=== PATIENT | female | born 1970 | race Hispanic/Latino ===

== ENCOUNTER 2018-07-17 17:43 | Inpatient (IN) | payer OTHER ==
[2018-07-17] MEDS ORDERED: NACL 0.9% 1000 ML 1,000 ML IV ONE (17:58)
[2018-07-17 18:31] LABS: Basophils # (Auto) 0.1 K/mm3 (0.0-0.1); Eosinophils # (Auto) 0.2 K/mm3 (0.0-0.4); Eosinophils % (Auto) 1.7 % (0.0-4.3); Hematocrit 47.1 % (30.3-42.9); Hemoglobin 16.5 gm/dl (10.1-14.3); Lymphocytes # (Auto) 3.2 K/mm3 (1.2-5.4); Lymphocytes % (Auto) 32.9 % (13.4-35.0); Mean Corpuscular HGB Conc 35 % (30-34); Mean Corpuscular Volume 91 fl (79-97); Monocytes # (Auto) 0.6 K/mm3 (0.0-0.8); Monocytes % (Auto) 6.5 % (0.0-7.3); Platelet Count 255 K/mm3 (140-440); Red Blood Count 5.15 M/mm3 (3.65-5.03)
[2018-07-17 18:52] LABS: Alanine Aminotransferase 16 units/L (7-56); Albumin 4.6 g/dL (3.9-5); BUN/Creatinine Ratio 17; Blood Urea Nitrogen 15 mg/dL (7-17); Calcium 10.1 mg/dL (8.4-10.2); Hemolysis Index 5
[2018-07-17 18:57] LABS: Bilirubin,Urine NEG (Negative); Blood,Urine NEG (Negative); Color,Urine Yellow (Yellow); Mucus,Urine FEW /HPF; Protein,Urine <15 mg/dL mg/dL (Negative)
--- NOTE | 2018-07-17 22:32 | Emergency Department Report ---
ED Abdominal Pain HPI - General Chief Complaint: Abdominal Pain Stated Complaint: ABD PAIN/VOMITING Time Seen by Provider: 07/17/18 22:01 Source: patient Mode of arrival: Ambulatory Limitations: No Limitations - History of Present Illness Initial Comments: Patient is a 48-year-old female that presents to emergency room with complaints of abdominal pain 3 days. Patient states she's had this problem for 1 month and a half intermittently. Patient states the pain is a 5 out of 10 and has been worsening over the last 3 days. Patient states the pain is better with rest and worse with palpation and movement. Patient states the pain is in her umbilicus and radiates to her right lower quadrant and radiates to her right flank. Patient states she is having nausea and vomiting. Patient states several normal bowel movements. MD Complaint: abdominal pain -: Sudden Location: periumbilical, RLQ Radiation: R flank Migration to: no migration Severity: moderate Severity scale (0 -10): 5 Quality: stabbing Consistency: constant Improves With: rest Worsens With: movement Associated Symptoms: nausea, vomiting. denies: diarrhea, fever, chills, constipation, dysuria, hematemesis, hematochezia, melena, hematuria, anorexia, syncope Treatments Prior to Arrival: NSAIDs - Related Data LMP (females 10-50): last week Allergies Allergy/AdvReac Type Severity Reaction Status Date / Time No Known Allergies Allergy Unverified 07/17/18 17:55 ED Review of Systems ROS: Stated complaint: ABD PAIN/VOMITING Other details as noted in HPI Constitutional: denies: chills, fever Eyes: denies: eye pain, eye discharge, vision change ENT: denies: ear pain, throat pain Respiratory: denies: cough, shortness of breath, wheezing Cardiovascular: denies: chest pain, palpitations Endocrine: no symptoms reported Gastrointestinal: abdominal pain, nausea, vomiting. denies: diarrhea Genitourinary: denies: urgency, dysuria, discharge Musculoskeletal: denies: back pain, joint swelling, arthralgia Skin: denies: rash, lesions Neurological: denies: headache, weakness, paresthesias Psychiatric: denies: anxiety, depression Hematological/Lymphatic: denies: easy bleeding, easy bruising ED Past Medical Hx - Past Medical History Previous Medical History?: No - Surgical History Past Surgical History?: Yes Additional Surgical History: C/S - Family History Family history: no significant - Social History Smoking Status: Current Every Day Smoker Substance Use Type: None ED Physical Exam - General Limitations: No Limitations General appearance: alert, in no apparent distress - Head Head exam: Present: atraumatic, normocephalic - Eye Eye exam: Present: normal appearance - ENT ENT exam: Present: mucous membranes moist - Neck Neck exam: Present: normal inspection - Respiratory Respiratory exam: Present: normal lung sounds bilaterally. Absent: respiratory distress - Cardiovascular Cardiovascular Exam: Present: regular rate, normal rhythm. Absent: systolic murmur, diastolic murmur, rubs, gallop - GI/Abdominal GI/Abdominal exam: Present: soft, tenderness (periumbilical tenderness and right lower quadrant tenderness. Right flank tenderness), normal bowel sounds - Extremities Exam Extremities exam: Present: normal inspection - Back Exam Back exam: Present: normal inspection - Neurological Exam Neurological exam: Present: alert, oriented X3 - Psychiatric Psychiatric exam: Present: normal affect, normal mood - Skin Skin exam: Present: warm, dry, intact, normal color. Absent: rash ED Course Vital Signs 07/17/18 07/17/18 07/17/18 17:55 21:38 23:55 Temperature 98.5 F Pulse Rate 74 74 62 Respiratory 20 16 16 Rate Blood Pressure 140/87 Blood Pressure 134/62 126/81 [Left] O2 Sat by Pulse 98 97 97 Oximetry 07/18/18 07/18/18 07/18/18 00:55 01:55 03:27 Temperature 97.8 F Pulse Rate 61 67 61 Respiratory 18 16 16 Rate Blood Pressure Blood Pressure 106/53 121/74 121/76 [Left] O2 Sat by Pulse 98 98 97 Oximetry - Reevaluation(s) Reevaluation #1: Discussed all results with patient. patient agrees with plan of care and admission. Patient to be admitted to the hospitalist service. 07/18/18 03:15 - Consultations Consultation #1: Discussed case with Dr. fernandez. Dr. fernandez, general surgery wants patient admitted to the hospitalist service and placed on Zosyn and nothing by mouth 07/18/18 03:16 Hospitalist consult for admission. Hospitalist to admit patient. 07/18/18 03:49 ED Medical Decision Making - Lab Data Result diagrams: 07/17/18 18:06 01/11/19 18:06 - Radiology Data Radiology results: report reviewed FINAL REPORT PROCEDURE: CT ABDOMEN PELVIS W CON TECHNIQUE: Computerized axial tomography of the abdomen and pelvis was performed after the IV injection of iodinated nonionic contrast. HISTORY: rt flank pain. back pain,. rlq pain COMPARISON: No prior studies are available for comparison. FINDINGS: Visualized lower thorax: No significant abnormality. Liver: Normal size and attenuation. Spleen: Normal size and attenuation. Gallbladder and biliary system: Normal. Pancreas: Normal. Adrenals: Normal. Kidneys: Normal. GI tract: The appendix is identified and measures 7 millimeters in diameter. This is at the upper limits of normal. There are questionable inflammatory changes of the surrounding fat. Early appendicitis is suspected. Correlation with clinical data suggested. The stomach, small bowel and colon are unremarkable.. Lymph nodes and mesentery: Normal. Vasculature: Normal. Bladder: Normal. Reproductive organs: Uterus and ovaries are unremarkable.. Peritoneum: There is no ascites or free air, abscess or adenopathy.. Musculoskeletal structures: No significant abnormality. Other: None. IMPRESSION: The appendix is identified and measures 7 millimeters in diameter. This is at the upper limits of normal. There are questionable inflammatory changes of the surrounding fat. Early appendicitis is suspected. Correlation with clinical data suggested. The stomach, small bowel and colon are unremarkable.. Uterus and ovaries are unremarkable.. There is no ascites or free air, abscess or adenopathy. - Medical Decision Making Patient is a 48-year-old female that presents emergency room with complaints of right lower quadrant pain. Patient found on CT scan to have a acute appendicitis. Gen. surgery consult. Patient admitted to the hospitalist service. - Differential Diagnosis appendicitis. Abdominal pain Critical Care Time: Yes Critical care attestation.: If time is entered above; I have spent that time in minutes in the direct care of this critically ill patient, excluding procedure time. Critical Care Time: 35 minutes ED Disposition Clinical Impression: Appendicitis Qualifiers: Appendicitis type: acute appendicitis Acute appendicitis type: unspecified acute appendicitis type Qualified Code(s): K35.80 - Unspecified acute appendicitis Abdominal pain Qualifiers: Abdominal location: right lower quadrant Qualified Code(s): R10.31 - Right lowe r quadrant pain Disposition: OP ADMIT IP TO THIS HOSP Is pt being admited?: Yes Does the pt Need Aspirin: No Condition: Critical Time of Disposition: 03:46
--- NOTE | 2018-07-18 02:02 | Cat Scan Report ---
FINAL REPORT PROCEDURE: CT ABDOMEN PELVIS W CON TECHNIQUE: Computerized axial tomography of the abdomen and pelvis was performed after the IV inject ion of iodinated nonionic contrast. HISTORY: rt flank pain. back pain,. rlq pain COMPARISON: No prior studies are available for comparison. FINDINGS: Visualized lower thorax: No significant abnormality. Liver: Normal size and attenuation. Spleen: Normal size and attenuation. Gallbladder and biliary system: Normal. Pancreas: Normal. Adrenals: Normal. Kidneys: Normal. GI tract: The appendix is identified and measures 7 millimeters in diameter. This is at the upper sigala its of normal. There are questionable inflammatory changes of the surrounding fat. Early appendicitis is suspected. Correlation with clinical data suggested. The stomach, small bowel and colon are unremarkable.. Lymph nodes and mesentery: Normal. Vasculature: Normal. Bladder: Normal. Reproductive organs: Uterus and ovaries are unremarkable.. Peritoneum: There is no ascites or free air, abscess or adenopathy.. Musculoskeletal structures: No significant abnormality. Other: None. IMPRESSION: The appendix is identified and measures 7 millimeters in diameter. This is at the upper limits of nor mal. There are questionable inflammatory changes of the surrounding fat. Early appendicitis is suspec pedro. Correlation with clinical data suggested. The stomach, small bowel and colon are unremarkable.. Uterus and ovaries are unremarkable.. There is no ascites or free air, abscess or adenopathy.
[2018-07-18] MEDS ORDERED: ZOSYN/NS 3.375GM/50ML 3.375 GM/50 ML BAG IV ONE (04:05)
[2018-07-18] MEDS ORDERED: DILAUDID IV ONE (05:07)
[2018-07-18] MEDS ORDERED: DILAUDID ONE (05:09)
[2018-07-18] MEDS ORDERED: SUBLIMAZE ONE (11:20)
[2018-07-18] MEDS ORDERED: DIPRIVAN 10 MG/ML IV ONE (11:20)
[2018-07-18] MEDS ORDERED: ROBINUL ONE (11:20)
[2018-07-18] MEDS ORDERED: DECADRON ONE (11:20)
[2018-07-18] MEDS ORDERED: BLOXIVERZ ONE ×2 (11:20→13:04)
[2018-07-18] MEDS ORDERED: XYLOCAINE MPF 2% ONE (11:20)
[2018-07-18] MEDS ORDERED: ZEMURON IV ONE (11:20)
[2018-07-18] MEDS ORDERED: ZOFRAN ONE (11:20)
[2018-07-18] MEDS ORDERED: ZOSYN/NS 4.5GM/100ML 4.5 GM/100 ML VIAL IV SCH (12:00)
--- NOTE | 2018-07-18 12:05 | Anesthesia Consultation ---
Anesthesia Consult and Med Hx Date of service: 07/18/18 - Airway Anesthetic Teeth Evaluation: Poor ROM Head & Neck: Adequate Mental/Hyoid Distance: Adequate Mallampati Class: Class I Intubation Access Assessment: Probably Good - Pulmonary Exam CTA: Yes - Cardiac Exam Cardiac Exam: RRR - Pre-Operative Health Status ASA Pre-Surgery Classification: ASA2 Proposed Anesthetic Plan: General - Pulmonary Hx Smoking: Yes (1/2 ppd > 20 years) Hx Asthma: No Hx Respiratory Symptoms: No SOB: No Hx Sleep Apnea: No - Cardiovascular System Hx Hypertension: No Hx Cardia Arrhythmia: No - Central Nervous System Hx Neuromuscular Disorder: No Hx Seizures: No - Gastrointestinal Hx Gastroesophageal Reflux Disease: No - Endocrine Hx Renal Disease: No Hx Non-Insulin Dependent Diabetes: Yes (FBS 209 g/dl) - Other Systems Hx Cancer: No - Additional Comments Anesthesia Medical History Comments: No GAC, No FHAC
[2018-07-18] MEDS ORDERED: XYLOCAINE 1% 20 mL ONE (12:10)
[2018-07-18] MEDS ORDERED: MARCAINE 0.5% INFILTRATI ONE ×2 (12:10→13:01)
[2018-07-18] MEDS ORDERED: TORADOL ONE (12:15)
--- NOTE | 2018-07-18 12:47 | Consultation ---
History of Present Illness Consult date: 07/18/18 Chief complaint: ABDOMINAL PAIN - History of present illness History of present illness: 48 yo F with hx of prediabetes presents to hospital with c/o 3 days of periumbilical abdominal pain radiating to the right lower quadrant and right lower back. Pain is sharp, started suddenly and is not specifically related to food. It waxes and wanes in severity but is otherwise constant. She had 3 episodes of nonbloody/nonbilious emesis today. + loose stools. Low grade temp at home of 100. She has never had pain like this in the past. She also c/o RUQ pain from time to time after eating meals, especially at night after dinner. This pain is different from what she is experiencing today. She has never had a colonoscopy and has not seen a doctor in 5 years. Past History Past Medical History: other (prediabetes) Past Surgical History: Social history: smoking (1/2 PPD), alcohol abuse (occasional). denies: prescription drug abuse, IV drug use Family history: diabetes Medications and Allergies Allergies Allergy/AdvReac Type Severity Reaction Status Date / Time No Known Allergies Allergy Unverified 07/17/18 17:55 Active Meds: Active Medications Sodium Chloride (Nacl 0.9% 1000 Ml) 1,000 mls @ 100 mls/hr IV DIRECT MANOLO Piperacillin Sod/Tazobactam Sod (Zosyn/Ns 4.5gm/100ml) 4.5 gm in 100 mls @ 200 mls/hr IV Q8H MANOLO; Protocol Review of Systems All systems: negative (10 PT ROS performed and negative except for that listed in HPI) Exam Vital Signs Temp Pulse Resp BP Pulse Ox 98.5 F 74 20 140/87 98 07/17/18 17:55 07/17/18 17:55 07/17/18 17:55 07/17/18 17:55 07/17/18 17:55 Narrative exam: Gen: AAOx3. NAD ENT: no scleral icterus or conjunctival pallor CV: S1, S2+ resp: even and unlabored Abd: soft, ND, + RLQ and RUQ TTP. no r/r/g Ext; no c/c/e Results - Labs 07/17/18 18:06 07/17/18 18:06 Abnormal lab results 07/17/18 07/17/18 07/17/18 Range/Units 18:06 18:06 18:29 RBC 5.15 H (3.65-5.03) M/mm3 Hgb 16.5 H (10.1-14.3) gm/dl Hct 47.1 H (30.3-42.9) % MCHC 35 H (30-34) % RDW 13.0 L (13.2-15.2) % Glucose 209 H (65-100) mg/dL Urine pH 8.0 H (5.0-7.0) Diabetes panel 07/17/18 Range/Units 18:06 Sodium 139 (137-145) mmol/L Potassium 4.1 (3.6-5.0) mmol/L Chloride 98.8 (98-107) mmol/L Carbon Dioxide 29 (22-30) mmol/L BUN 15 (7-17) mg/dL Creatinine 0.9 (0.7-1.2) mg/dL Glucose 209 H (65-100) mg/dL Calcium 10.1 (8.4-10.2) mg/dL AST 14 (5-40) units/L ALT 16 (7-56) units/L Alkaline Phosphatase 121 (35-129) units/L Total Protein 7.6 (6.3-8.2) g/dL Albumin 4.6 (3.9-5) g/dL Calcium panel 07/17/18 Range/Units 18:06 Calcium 10.1 (8.4-10.2) mg/dL Albumin 4.6 (3.9-5) g/dL Pituitary panel 07/17/18 Range/Units 18:06 Sodium 139 (137-145) mmol/L Potassium 4.1 (3.6-5.0) mmol/L Chloride 98.8 (98-107) mmol/L Carbon Dioxide 29 (22-30) mmol/L BUN 15 (7-17) mg/dL Creatinine 0.9 (0.7-1.2) mg/dL Glucose 209 H (65-100) mg/dL Calcium 10.1 (8.4-10.2) mg/dL Adrenal panel 07/17/18 Range/Units 18:06 Sodium 139 (137-145) mmol/L Potassium 4.1 (3.6-5.0) mmol/L Chloride 98.8 (98-107) mmol/L Carbon Dioxide 29 (22-30) mmol/L BUN 15 (7-17) mg/dL Creatinine 0.9 (0.7-1.2) mg/dL Glucose 209 H (65-100) mg/dL Calcium 10.1 (8.4-10.2) mg/dL Total Bilirubin 0.40 (0.1-1.2) mg/dL AST 14 (5-40) units/L ALT 16 (7-56) units/L Alkaline Phosphatase 121 (35-129) units/L Total Protein 7.6 (6.3-8.2) g/dL Albumin 4.6 (3.9-5) g/dL - Imaging CT scan - abdomen: report reviewed, image reviewed Assessment and Plan 48 yo F with acute appendicitis PLan: 1. NPO 2. IVF 3. IV zosyn 4. prn pain and nausea control 5. for OR today for appendectomy. I discussed all risks, benefits, and alternatives to surgery with patient and all questions answered. Consent obtained. 6. The patient has also been having intermittent RUQ abd pain after meals. Will likely need gallbladder w/u as outpatient Thank you, please call with questions
[2018-07-18] MEDS ORDERED: SODIUM CHLORIDE FLUSH SYRINGE 10 ML IV PRN (12:55)
[2018-07-18] MEDS ORDERED: TYLENOL PO PRN (12:55)
[2018-07-18] MEDS ORDERED: ZOFRAN IV PRN (12:55)
--- NOTE | 2018-07-18 12:55 | History and Physical Report ---
History of Present Illness Date of examination: 07/18/18 Date of admission: 07/18/18 05:52 Chief complaint: Abdominal pain History of present illness: Patient is a 48-year-old female that presents to emergency room with complaints of abdominal pain 3 days. Patient states she's had this problem for 1 month and a half intermittently and believes that he has been going on as long as a year. Patient states the pain is a 5 out of 10 and has been worsening over the last 3 days. Patient states the pain is better with rest and worse with palpation and movement. Patient states the pain is in her umbilicus and radiates to her right lower quadrant and radiates to her right flank. Patient states she is having nausea and vomiting. Patient states several normal bowel movements. She denies any fever or chills. No cough or cold-like symptoms. No diarrhea. Past History Past Medical History: No medical history Past Surgical History: No surgical history Social history: smoking Family history: no significant family history Medications and Allergies Allergies Allergy/AdvReac Type Severity Reaction Status Date / Time No Known Allergies Allergy Unverified 07/17/18 17:55 Active Meds: Active Medications Sodium Chloride (Nacl 0.9% 1000 Ml) 1,000 mls @ 100 mls/hr IV DIRECT MANOLO Piperacillin Sod/Tazobactam Sod (Zosyn/Ns 4.5gm/100ml) 4.5 gm in 100 mls @ 200 mls/hr IV Q8H MANOLO; Protocol Review of Systems All systems: negative Exam - Constitutional Vitals: Temp Pulse Resp BP Pulse Ox 98.0 F 57 L 18 122/62 93 07/18/18 11:50 07/18/18 11:50 07/18/18 11:50 07/18/18 11:50 07/18/18 11:50 General appearance: Present: no acute distress, well-nourished - EENT Eyes: Present: PERRL ENT: hearing intact, clear oral mucosa - Neck Neck: Present: supple, normal ROM - Respiratory Respiratory effort: normal Respiratory: bilateral: CTA - Cardiovascular Heart Sounds: Present: S1 & S2. Absent: rub, click - Extremities Extremities: pulses symmetrical, No edema Peripheral Pulses: within normal limits - Abdominal General gastrointestinal: Present: soft, non-tender, non-distended, normal bowel sounds Female genitourinary: Present: normal - Integumentary Integumentary: Present: clear, warm, dry - Musculoskeletal Musculoskeletal: gait normal, strength equal bilaterally - Psychiatric Psychiatric: appropriate mood/affect, intact judgment & insight - Neurologic Neurologic: CNII-XII intact, moves all extremities Results - Labs CBC & Chem 7: 07/17/18 18:06 07/17/18 18:06 Labs: Laboratory Last Values WBC 9.6 K/mm3 (4.5-11.0) 07/17/18 18:06 RBC 5.15 M/mm3 (3.65-5.03) H 07/17/18 18:06 Hgb 16.5 gm/dl (10.1-14.3) H 07/17/18 18:06 Hct 47.1 % (30.3-42.9) H 07/17/18 18:06 MCV 91 fl (79-97) 07/17/18 18:06 MCH 32 pg (28-32) 07/17/18 18:06 MCHC 35 % (30-34) H 07/17/18 18:06 RDW 13.0 % (13.2-15.2) L 07/17/18 18:06 Plt Count 255 K/mm3 (140-440) 07/17/18 18:06 Lymph % (Auto) 32.9 % (13.4-35.0) 07/17/18 18:06 [place] % (Auto) 6.5 % (0.0-7.3) 07/17/18 18:06 Eos % (Auto) 1.7 % (0.0-4.3) 07/17/18 18:06 Baso % (Auto) 1.0 % (0.0-1.8) 07/17/18 18:06 Lymph # 3.2 K/mm3 (1.2-5.4) 07/17/18 18:06 [place] # 0.6 K/mm3 (0.0-0.8) 07/17/18 18:06 Eos # 0.2 K/mm3 (0.0-0.4) 07/17/18 18:06 Baso # 0.1 K/mm3 (0.0-0.1) 07/17/18 18:06 Seg Neutrophils % 57.9 % (40.0-70.0) 07/17/18 18:06 Seg Neutrophils # 5.6 K/mm3 (1.8-7.7) 07/17/18 18:06 Sodium 139 mmol/L (137-145) 07/17/18 18:06 Potassium 4.1 mmol/L (3.6-5.0) 07/17/18 18:06 Chloride 98.8 mmol/L (98-107) 07/17/18 18:06 Carbon Dioxide 29 mmol/L (22-30) 07/17/18 18:06 Anion Gap 15 mmol/L 07/17/18 18:06 BUN 15 mg/dL (7-17) 07/17/18 18:06 Creatinine 0.9 mg/dL (0.7-1.2) 07/17/18 18:06 Estimated GFR > 60 ml/min 07/17/18 18:06 BUN/Creatinine Ratio 17 % 07/17/18 18:06 Glucose 209 mg/dL (65-100) H 07/17/18 18:06 Calcium 10.1 mg/dL (8.4-10.2) 07/17/18 18:06 Total Bilirubin 0.40 mg/dL (0.1-1.2) 07/17/18 18:06 AST 14 units/L (5-40) 07/17/18 18:06 ALT 16 units/L (7-56) 07/17/18 18:06 Alkaline Phosphatase 121 units/L (35-129) 07/17/18 18:06 Total Protein 7.6 g/dL (6.3-8.2) 07/17/18 18:06 Albumin 4.6 g/dL (3.9-5) 07/17/18 18:06 Albumin/Globulin Ratio 1.5 % 07/17/18 18:06 Lipase 30 units/L (13-60) 07/17/18 18:06 HCG, Qual Negative (Negative) 07/17/18 18:06 Urine Color Yellow (Yellow) 07/17/18 18:29 Urine Turbidity Clear (Clear) 07/17/18 18: Urine pH 8.0 (5.0-7.0) H 07/17/18 18:29 Ur Specific [place] 1.018 (1.003-1.030) 07/17/18 18:29 Urine Protein <15 mg/dl mg/dL (Negative) 07/17/18 18: Urine Glucose (UA) 50 mg/dL (Negative) 07/17/18: Urine Ketones Neg mg/dL (Negative) 07/17/18: Urine Blood Neg (Negative) 07/17/18 18: Urine Nitrite Neg (Negative) 07/17/18 18: Urine Bilirubin Neg (Negative) 07/17/18: Urine Urobilinogen 2.0 mg/dL (<2.0) 07/17/18 18: Ur Leukocyte Esterase Sm (Negative) 07/17/18 18: Urine WBC (Auto) 3.0 /HPF (0.0-6.0) 07/17/18: Urine RBC (Auto) 4.0 /HPF (0.0-6.0) 07/17/18: U Epithel Cells (Auto) 3.0 /HPF (0-13.0) 07/17/18 Urine Mucus Few /HPF 07/17/18 Assessment and Plan Assessment and plan: Acute appendicitis. The patient will Nothing by mouth and continue with supportive care with IV fluid hydration, pain control and anti-emetics. Surgery has evaluated the patient and plans for OR today for appendectomy. Continue IV Zosyn.
[2018-07-18] MEDS ORDERED: NACL 0.9% 1000 ML 1,000 ML ONE (12:56)
[2018-07-18] MEDS ORDERED: XYLOCAINE 1% 20 mL INFILTRATI ONE (13:01)
--- NOTE | 2018-07-18 13:44 | Post Operative Note ---
Date of procedure: 07/18/18 Pre-op diagnosis: acute appendicitis Post-op diagnosis: same Findings: dilated and inflamed appendix Procedure: laparoscopic appendectomy Anesthesia: CECYA, local Surgeon: SIOBHAN AVELAR Estimated blood loss: minimal Pathology: list (appendix) Specimen disposition: to lab Condition: stable Disposition: PACU
[2018-07-18] MEDS: DILAUDID IV PRN ×2 (14:45→16:00)
[2018-07-18] MEDS: NACL 0.9% 1000 ML 1,000 ML IV SCH ×2 (17:28→17:30)
[2018-07-18] MEDS ORDERED: SODIUM CHLORIDE FLUSH SYRINGE 10 ML IV SCH (22:00)
[2018-07-18] MEDS: NORCO 5/325 PO PRN (23:42)
[2018-07-19] MEDS: NACL 0.9% 1000 ML 1,000 ML IV SCH (03:05)
[2018-07-19 05:55] LABS: Basophils % (Auto) 0.5 % (0.0-1.8); Eosinophils # (Auto) 0.1 K/mm3 (0.0-0.4); Eosinophils % (Auto) 1.2 % (0.0-4.3); Hematocrit 39.6 % (30.3-42.9); Hemoglobin 13.6 gm/dl (10.1-14.3); Lymphocytes # (Auto) 3.2 K/mm3 (1.2-5.4); Lymphocytes % (Auto) 34.4 % (13.4-35.0); Mean Corpuscular HGB Conc 34 % (30-34); Mean Corpuscular Volume 93 fl (79-97); Monocytes # (Auto) 0.6 K/mm3 (0.0-0.8); Monocytes % (Auto) 6.4 % (0.0-7.3); Platelet Count 202 K/mm3 (140-440); Red Blood Count 4.27 M/mm3 (3.65-5.03); Red Cell Distribution Width 13.2 % (13.2-15.2)
[2018-07-19 06:14] LABS: BUN/Creatinine Ratio 13; Blood Urea Nitrogen 9 mg/dL (7-17); Calcium 8.5 mg/dL (8.4-10.2); Hemolysis Index 11
--- NOTE | 2018-07-19 08:47 | Progress Note ---
Assessment and Plan Assessment and plan: Acute appendicitis. s/p appendectomy. Patient noted to have dilated and inflamed appendix. Continue with IV fluid hydration, pain control and anti- emetics. Continue diet as tolerated. Continue IV Zosyn. History Interval history: Patient admitted with appendicitis and status post appendectomy. Patient will well postoperatively. Patient tolerating diet with no complaints. Hospitalist Physical - Constitutional Vitals: Temp Pulse Resp BP Pulse Ox 98.8 F 61 16 106/59 93 07/19/18 07:09 07/19/18 07:09 07/19/18 07:09 07/19/18 07:09 07/19/18 07:09 General appearance: Present: no acute distress, well-nourished - EENT Eyes: Present: PERRL, EOM intact ENT: hearing intact, clear oral mucosa, dentition normal - Neck Neck: Present: supple, normal ROM - Respiratory Respiratory effort: normal Respiratory: bilateral: CTA - Cardiovascular Rhythm: regular Heart Sounds: Present: S1 & S2. Absent: gallop, rub - Extremities Extremities: no ischemia, No edema, Full ROM - Abdominal General gastrointestinal: soft, non-tender, non-distended, normal bowel sounds - Integumentary Integumentary: Present: clear, warm, dry - Neurologic Neurologic: CNII-XII intact, moves all extremities Results - Labs CBC & Chem 7: 07/19/18 05:24 07/19/18 05:24 Labs: Laboratory Last Values WBC 9.2 K/mm3 (4.5-11.0) 07/19/18 05:24 RBC 4.27 M/mm3 (3.65-5.03) 07/19/18 05:24 Hgb 13.6 gm/dl (10.1-14.3) 07/19/18 05:24 Hct 39.6 % (30.3-42.9) D 07/19/18 05:24 MCV 93 fl (79-97) 07/19/18 05:24 MCH 32 pg (28-32) 07/19/18 05:24 MCHC 34 % (30-34) 07/19/18 05:24 RDW 13.2 % (13.2-15.2) 07/19/18 05:24 Plt Count 202 K/mm3 (140-440) 07/19/18 05:24 Lymph % (Auto) 34.4 % (13.4-35.0) 07/19/18 05:24 [place] % (Auto) 6.4 % (0.0-7.3) 07/19/18 05:24 Eos % (Auto) 1.2 % (0.0-4.3) 07/19/18 05:24 Baso % (Auto) 0.5 % (0.0-1.8) 07/19/18 05:24 Lymph # 3.2 K/mm3 (1.2-5.4) 07/19/18 05:24 [place] # 0.6 K/mm3 (0.0-0.8) 07/19/18 05:24 Eos # 0.1 K/mm3 (0.0-0.4) 07/19/18 05:24 Baso # 0.0 K/mm3 (0.0-0.1) 07/19/18 05:24 Seg Neutrophils % 57.5 % (40.0-70.0) 07/19/18 05:24 Seg Neutrophils # 5.3 K/mm3 (1.8-7.7) 07/19/18 05:24 Sodium 138 mmol/L (137-145) 07/19/18 05:24 Potassium 3.8 mmol/L (3.6-5.0) 07/19/18 05:24 Chloride 101.7 mmol/L (98-107) 07/19/18 05:24 Carbon Dioxide 24 mmol/L (22-30) 07/19/18 05:24 Anion Gap 16 mmol/L 07/19/18 05:24 BUN 9 mg/dL (7-17) 07/19/18 05:24 Creatinine 0.7 mg/dL (0.7-1.2) 07/19/18 05:24 Estimated GFR > 60 ml/min 07/19/18 05:24 BUN/Creatinine Ratio 13 % 07/19/18 05:24 Glucose 218 mg/dL (65-100) H 07/19/18 05:24 POC Glucose 195 (70-105) H 07/18/18 14:14 Calcium 8.5 mg/dL (8.4-10.2) D 07/19/18 05:24 Total Bilirubin 0.40 mg/dL (0.1-1.2) 07/17/18 18:06 AST 14 units/L (5-40) 07/17/18 18:06 ALT 16 units/L (7-56) 07/17/18 18: Alkaline Phosphatase 121 units/L (35-129) 07/17/18 18: Total Protein 7.6 g/dL (6.3-8.2) 07/17/18 18: Albumin 4.6 g/dL (3.9-5) 07/17/18 18: Albumin/Globulin Ratio 1.5 % 07/17/18 18:06 Lipase 30 units/L (13-60) 07/17/18 18:06 HCG, Qual Negative (Negative) 07/17/18 18: Urine Color Yellow (Yellow) 07/17/18 18: Urine Turbidity Clear (Clear) 07/17/18 18: Urine pH 8.0 (5.0-7.0) H 07/17/18 18: Ur Specific [place] 1.018 (1.003-1.030) 07/17/18 18: Urine Protein <15 mg/dl mg/dL (Negative) 07/17/18 18: Urine Glucose (UA) 50 mg/dL (Negative) 07/17/18 18: Urine Ketones Neg mg/dL (Negative) 07/17/18 18: Urine Blood Neg (Negative) 07/17/18 18: Urine Nitrite Neg (Negative) 07/17/18 18: Urine Bilirubin Neg (Negative) 07/17/18 18: Urine Urobilinogen 2.0 mg/dL (<2.0) 07/17/18 18:29 Ur Leukocyte Esterase Sm (Negative) 07/17/18 18:29 Urine WBC (Auto) 3.0 /HPF (0.0-6.0) 07/17/18 18: Urine RBC (Auto) 4.0 /HPF (0.0-6.0) 07/17/18 18: U Epithel Cells (Auto) 3.0 /HPF (0-13.0) 07/17/18 18: Urine Mucus Few /HPF 07/17/18 18:
[2018-07-19] MEDS ORDERED: LOVENOX SUB-Q SCH (10:00)
--- NOTE | 2018-07-19 11:31 | Progress Note ---
Assessment and Plan 48 yo F s/p laparoscopic appendectomy, POD 1 1. low fat diet 2. dc IVF 3. prn PO pain control 4. OOB/ambulate 5. ok to dc home from surgery standpoint. Paper dc instructions left on chart. Patient to follow up in surgery office in 2 weeks D/W Dr. Kev Tellez, please call with questions Subjective Date of service: 07/19/18 Narrative: Pt seen and examined. c/o mild incisional pain. Pain from preop is gone. No f/c. No cp, sob. Tolerating diet without n/v Objective Vital Signs - 12hr 07/19/18 07/19/18 07/19/18 00:25 04:46 04:47 Temperature 98.2 F 98.4 F Pulse Rate 73 69 64 Respiratory 18 18 Rate Blood Pressure 100/55 Blood Pressure 103/40 [Left] O2 Sat by Pulse 92 91 91 Oximetry 07/19/18 07/19/18 04:53 07:09 Temperature 98.8 F Pulse Rate 61 Respiratory 16 Rate Blood Pressure 103/56 106/59 Blood Pressure [Left] O2 Sat by Pulse 93 Oximetry - General physical appearance Narrative Exam: Gen: AAOx3. NAD CV: s1, s2+ resp: even and unlabored Abd: soft, ND, mild angela incisional TTP. Incisions c/d/i. No r/r/g Ext: no c/c/e - Labs 07/19/18 05:24 07/19/18 05:24 Diabetes panel 07/19/18 Range/Units 05:24 Sodium 138 (137-145) mmol/L Potassium 3.8 (3.6-5.0) mmol/L Chloride 101.7 (98-107) mmol/L Carbon Dioxide 24 (22-30) mmol/L BUN 9 (7-17) mg/dL Creatinine 0.7 (0.7-1.2) mg/dL Glucose 218 H (65-100) mg/dL Calcium 8.5 D (8.4-10.2) mg/dL Calcium panel 07/19/18 Range/Units 05:24 Calcium 8.5 D (8.4-10.2) mg/dL Pituitary panel 07/19/18 Range/Units 05:24 Sodium 138 (137-145) mmol/L Potassium 3.8 (3.6-5.0) mmol/L Chloride 101.7 (98-107) mmol/L Carbon Dioxide 24 (22-30) mmol/L BUN 9 (7-17) mg/dL Creatinine 0.7 (0.7-1.2) mg/dL Glucose 218 H (65-100) mg/dL Calcium 8.5 D (8.4-10.2) mg/dL Adrenal panel 07/19/18 Range/Units 05:24 Sodium 138 (137-145) mmol/L Potassium 3.8 (3.6-5.0) mmol/L Chloride 101.7 (98-107) mmol/L Carbon Dioxide 24 (22-30) mmol/L BUN 9 (7-17) mg/dL Creatinine 0.7 (0.7-1.2) mg/dL Glucose 218 H (65-100) mg/dL Calcium 8.5 D (8.4-10.2) mg/dL
[2018-07-19] MEDS: NORCO 5/325 PO PRN (12:43)
[2018-07-19 16:21] VITALS: BP 118/54
--- NOTE | 2018-07-20 08:35 | Discharge Summary ---
Providers - Providers Date of Admission: 07/18/18 05:52 Date of discharge: 07/19/18 Attending physician: VIRGINIA CABRERA 07/18/18 05:58 Consult to Physician [CONS] Routine Comment: DR AVELAR NOTIFIED 0315 Consulting Provider: SIOBHAN AVELAR Physician Instructions: Reason For Exam: api Primary care physician: CHEMISTRY SPECIALIST Hospitalization Reason for admission: appendicitis Condition: Critical Hospital course: 48-year-old female who presented through the emergency department with chief complaint of abdominal pain 3 days. The patient underwent CT scan of the abdomen and pelvis that revealed appendicitis. Patient was initially treated with IV fluid hydration, IV antibiotics and pain control. Patient was evaluated by surgery and underwent laparoscopic Appendectomy. The patient tolerated the procedure well. Diet was advanced which the patient tolerated. Patient ambulated well and pain was controlled with by mouth medications. Therefore, patient was felt to have received maximal hospital benefit. Dedicated discharge time 32 minutes. Disposition: TO HOME OR SELFCARE Time spent for discharge: 32 - Discharge Diagnoses (1) Abdominal pain Status: Acute Qualifiers: Abdominal location: right lower quadrant Qualified Code(s): R10.31 - Right lower quadrant pain (2) Appendicitis Status: Acute Qualifiers: Appendicitis type: acute appendicitis Acute appendicitis type: unspecified acute appendicitis type Qualified Code(s): K35.80 - Unspecified acute appendicitis Core Measure Documentation - Palliative Care Palliative Care/ Comfort Measures: Not Applicable - Core Measures Any of the following diagnoses?: none Exam - Constitutional Vitals: Temp Pulse Resp BP Pulse Ox 98.5 F 60 16 118/54 94 07/19/18 15:29 07/19/18 15:29 07/19/18 15:29 07/19/18 15:29 07/19/18 15:29 General appearance: Present: no acute distress, well-nourished - EENT Eyes: Present: PERRL ENT: hearing intact, clear oral mucosa - Neck Neck: Present: supple, normal ROM - Respiratory Respiratory effort: normal Respiratory: bilateral: CTA - Cardiovascular Heart Sounds: Present: S1 & S2. Absent: rub, click - Extremities Extremities: pulses symmetrical, No edema Peripheral Pulses: within normal limits - Abdominal General gastrointestinal: Present: soft, non-tender, non-distended, normal bowel sounds Female genitourinary: Present: normal - Integumentary Integumentary: Present: clear, warm, dry - Musculoskeletal Musculoskeletal: gait normal, strength equal bilaterally - Psychiatric Psychiatric: appropriate mood/affect, intact judgment & insight - Neurologic Neurologic: CNII-XII intact, moves all extremities Plan Activity: advance as tolerated Weight Bearing Status: Weight Bear as Tolerated Diet: regular Wound: per your surgeon's advice Prescriptions: HYDROcodone/APAP 5-325 [[place] 5/325] 1 each PO Q4HR PRN #20 tablet PRN Reason: Pain
--- NOTE | 2018-07-20 12:17 | Operative Report ---
PREOPERATIVE DIAGNOSIS: Acute appendicitis. POSTOPERATIVE DIAGNOSIS: Acute appendicitis. FINDINGS: Dilated, inflamed appendix. PROCEDURE: Laparoscopic appendectomy. ANESTHESIA: General endotracheal anesthesia, local. SURGEON: Radha Stanley DO ESTIMATED BLOOD LOSS: Minimal. PATHOLOGY: Appendix. DISPOSITION OF SPECIMEN: To lab. CONDITION: Stable. DISPOSITION OF PATIENT: To PACU. HISTORY OF PRESENT ILLNESS AND INDICATION: The patient is a 48-year-old female, who presented to the Emergency Room with complaints of periumbilical and right lower quadrant abdominal pain radiating to the right lower back. Pain had been present for [address] scan of the abdomen and pelvis showed slight dilatation of the appendix with a mild periappendiceal inflammatory changes, concerning for appendicitis. Physical exam was consistent with appendicitis along with imaging studies and therefore appendectomy was recommended. All risks, benefits, alternatives to surgery were discussed with the patient and questions answered. Consent was obtained. PROCEDURE IN DETAIL: The patient was identified in the preoperative area and taken back to the operating room and placed on the operating table in supine position. After anesthesia was induced, a Luciano catheter was sterilely placed by the circulating nurse. The abdomen was then prepped and draped in the usual sterile fashion. Time-out was performed. Local anesthetic was infiltrated to all skin incision sites. A 5 mm supraumbilical incision was made through which a Veress needle was inserted. Multiple attempts were made; however, the Veress needle did not traverse the peritoneum due to the patient's body habitus and therefore a small nathalia incision was made in the left upper quadrant at Whitaker's point. The Veress needle was inserted through here and the position of the Veress needle was confirmed using the saline drop test. The abdomen was insufflated to 15 mmHg and a 5 mm Optiview trocar was then placed through the supraumbilical incision under direct visualization. The abdomen was then inspected along with a Veress needle tract and there was no underlying injury to any of the abdominal contents. The Veress needle was withdrawn under direct visualization. The patient was placed in Trendelenburg position and rotated to the left. An additional 5 mm suprapubic and a 12 mm left lower quadrant trocar were placed under direct visualization. The ileocecal fat pad was identified and the cecum was rotated medially in order to identify the appendix. The appendix was identified and did appear thickened and inflamed. The mesentery of the appendix was ligated using a Harmonic scalpel. Once the base of the appendix was reached this, the appendix was transected using a [place] Flex 45 mm white load stapler. The appendix was placed into the EndoCatch bag and placed in the left lower quadrant. The staple line as well as the ligated mesentery was inspected for hemostasis and hemostasis carefully ensured. The patient was then placed back into neutral position and the appendix removed via the 12 mm left lower quadrant port. The left lower quadrant port fascia was closed with 0 Vicryl interrupted stitch using the Mariusz-Edgardo device. All skin incisions were once again infiltrated with local anesthetic and the skin incisions were closed with 4-0 Monocryl subcuticular stitches and skin glue. The Luciano catheter was removed. At the end of the case, all sponge, instrument and sharp counts were correct x 2. The patient was awoken from anesthesia, extubated, and taken to PACU in stable condition. JOB# [id number] VASQUEZ/MORALES
== END 2018-07-19 16:30 | disposition home or self-care (01) | DRG 343 ==
LOC: ED 17:43 → 3B-SURG 07-18 05:52
PROVIDERS: ADMIT Internal Medicine; ATTEND Hospitalist
PROC: 0DTJ4ZZ Resection of Appendix, Percutaneous Endoscopic Approach (ICD-10-PCS; principal; 2018-07-18)
DX: K35.80 Unspecified acute appendicitis (principal); F10.10 Alcohol abuse, uncomplicated; Y90.0 Blood alcohol level of less than 20 mg/100 ml; E11.9 Type 2 diabetes mellitus without complications; F17.210 Nicotine dependence, cigarettes, uncomplicated; Z71.6 Tobacco abuse counseling; Z83.3 Family history of diabetes mellitus; Z79.84 Long term (current) use of oral hypoglycemic drugs
CPT/HCPCS: 36415; 74177; 80048; 80053; 81001; 82962; 83690; 84703; 85025; 88304; 96374; 96375; 99406; G0378; J1100; J1170; J1650; J1885; J2405; J2543; J2704; J2710; J3010; J7030; Q9967